=== PATIENT | male | born 1975 | race Hispanic/Latino ===

== ENCOUNTER → 2023-12-06 | Day surgery (SDC) | payer OTHER ==
[~2023-12-06] MED LIST: ALLOPURINOL300 MG PO; D3-5000125 MCG; DEXAMETHASONE SOD PHOS INJ 4 MG/ML SDV ONE; EPINEPHRINE HCL 1:1000 1ML 1 MG/ML AMP ONE; FENTANYL CITRATE/PF 100MCG/2 ML INJ ONE; LIDOCAINE 1% W/EPINEPHRINE 20 ML VIAL ONE; LIDOCAINE HCL 2% LOCAL INJ 5 ML SDV VIAL INJ ONE; LISINOPRIL5 MG PO; ONDANSETRON HCL INJ 2MG/ML 2ML 2 MG/ML VIAL ONE; PROPOFOL IV EMULSION 10 MG/ML 20 ML VIAL ONE; ROCURONIUM BROMIDE 10 MG/ML 5ML VIAL IV ONE; SEVOFLURANE INHAL SOLN 250 ML PEN BTL ONE; SUCCINYLCHOLINE CHLORIDE 20 MG/ML 10ML VIAL ONE; SUGAMMADEX SODIUM 200 MG/2 ML VIAL IV ONE
[2023-12-06] MEDS: LACTATED RINGER'S 1,000 ML ONE (09:30)
[2023-12-06 10:20] VITALS: BP 115/79; PULSE 58; RESP 15; O2SAT 98
== END | disposition home or self-care (01) ==
LOC: OR 06:48 → EDSEX 07:30
PROVIDERS: ATTEND Otolaryngology Otolaryngology/Facial Plastic Surgery
DX: J34.2 Deviated nasal septum (principal); J32.9 Chronic sinusitis, unspecified; J34.89 Other specified disorders of nose and nasal sinuses; I10 Essential (primary) hypertension; M10.9 Gout, unspecified; Z88.8 Allergy status to other drugs, medicaments and biological substances; Z79.899 Other long term (current) drug therapy
CPT/HCPCS: 30520; 88304; 88311; J0171; J0330; J1100; J2001; J2405; J2704; J3010; J7121; 88300